=== PATIENT | female | born 1965 | race Caucasian/White ===

== ENCOUNTER 2017-05-27 10:28 | Emergency (ER) | payer MEDICAID ==
[2017-05-27 13:43] VITALS: BP 132/78
== END 2017-05-27 13:43 | disposition home or self-care (01) ==
LOC: ED 10:28
DX: M75.81 Other shoulder lesions, right shoulder (principal)
CPT/HCPCS: J1885; Q0092

== ENCOUNTER 2019-07-30 13:20 | Emergency (ER) | payer BC ==
[2019-07-30 14:47] LABS: BASOPHIL % 0.6 % (0-2); PLATELET COUNT 233 x10^3mcL (130-400)
[2019-07-30 14:54] LABS: CARBON DIOXIDE 30.5 mmol/L (21-32); CHLORIDE SERUM 106 mmol/L (98-107); CREATININE SERUM 0.7 mg/dL (0.6-1.0); GFR1 > 60 mL/min; GLUCOSE SERUM 114 mg/dL (74-106); POTASSIUM SERUM 3.9 mmol/L (3.5-5.1); SODIUM SERUM 142 mmol/L (136-145)
[2019-07-30 14:59] LABS: ALBUMIN 3.4 g/dL (3.4-5.0); ALKALINE PHOSPHATASE 107 U/L (46-116); ALT/SGPT 33 U/L (14-59); AST/SGOT 19 U/L (15-37); BILIRUBIN DIRECT 0.07 mg/dL (0.0-0.2); BILIRUBIN TOTAL 0.3 mg/dL (0.20-1.00); CALCIUM 8.6 mg/dL (8.5-10.1); TOTAL PROTEIN, SERUM 7.1 g/dL (6.4-8.2)
[2019-07-30 16:45] VITALS: BP 125/65
== END 2019-07-30 16:45 | disposition home or self-care (01) ==
LOC: ED 13:20
PROVIDERS: Student in an Organized Health Care Education/Training Program
DX: G43.909 Migraine, unspecified, not intractable, without status migrainosus (principal); R06.02 Shortness of breath
CPT/HCPCS: 83880; J0780; J7030; Q0092

== ENCOUNTER 2020-09-23 14:53 | Emergency (ER) | payer OTHER ==
[~2020-09-23] VITALS: Ht 157.5 cm; Wt 73.9 kg
[2020-09-23 15:11] VITALS: Ht 157.5 cm; Wt 73.9 kg
[2020-09-23 15:44] LABS: CALCIUM 8.8 mg/dL (8.5-10.1); CARBON DIOXIDE 25.1 mmol/L (21-32); CHLORIDE SERUM 104 mmol/L (98-107); CREATININE SERUM 0.8 mg/dL (0.6-1.0); GFR1 > 60 mL/min; GLUCOSE SERUM 126 mg/dL (74-106); POTASSIUM SERUM 3.5 mmol/L (3.5-5.1); SODIUM SERUM 138 mmol/L (136-145)
[2020-09-23 15:46] LABS: BASOPHIL % 0.4 % (0-2); PLATELET COUNT 260 x10^3mcL (130-400); RED CELL DISTRIBUTION WIDTH 14.2 % (11.5-14.5)
[2020-09-23 15:49] LABS: ALBUMIN 3.8 g/dL (3.4-5.0); ALKALINE PHOSPHATASE 128 U/L (46-116); ALT/SGPT 151 U/L (14-59); AST/SGOT 158 U/L (15-37); BILIRUBIN TOTAL 2.18 mg/dL (0.20-1.00); LIPASE 156 IU/L (73-393); TOTAL PROTEIN, SERUM 7.8 g/dL (6.4-8.2)
[2020-09-23 23:42] VITALS: BP 115/62
== END 2020-09-23 23:42 | disposition home or self-care (01) ==
LOC: ED 14:53
DX: K80.50 Calculus of bile duct without cholangitis or cholecystitis without obstruction (principal); R10.11 Right upper quadrant pain; K80.20 Calculus of gallbladder without cholecystitis without obstruction; K76.0 Fatty (change of) liver, not elsewhere classified; R94.5 Abnormal results of liver function studies
CPT/HCPCS: J1885; Q0162

== ENCOUNTER 2020-12-27 08:52 | Emergency (ER) | payer OTHER ==
[~2020-12-27] VITALS: Ht 157.5 cm; Wt 74.4 kg
[2020-12-27 08:56] VITALS: Ht 157.5 cm; Wt 74.4 kg
[2020-12-27 10:00] LABS: BASOPHIL % 0.6 % (0.2-1.3); PLATELET COUNT 266 x10^3mcL (179-408); RED CELL DISTRIBUTION WIDTH 13.6 % (12.3-17.7)
[2020-12-27 10:43] LABS: CALCIUM 9.1 mg/dL (8.5-10.1); CARBON DIOXIDE 28.7 mmol/L (21-32); CHLORIDE SERUM 104 mmol/L (98-107); CREATININE SERUM 0.6 mg/dL (0.6-1.0); GFR1 > 60 mL/min; GLUCOSE SERUM 102 mg/dL (74-106); POTASSIUM SERUM 4.1 mmol/L (3.5-5.1); SODIUM SERUM 140 mmol/L (136-145)
[2020-12-27 10:48] LABS: ALBUMIN 3.7 g/dL (3.4-5.0); ALKALINE PHOSPHATASE 106 U/L (46-116); ALT/SGPT 28 U/L (14-59); AST/SGOT 18 U/L (15-37); BILIRUBIN TOTAL 0.4 mg/dL (0.20-1.00); LIPASE 111 IU/L (73-393); TOTAL PROTEIN, SERUM 7.6 g/dL (6.4-8.2)
[2020-12-27] MEDS ORDERED: CYCLOBENZAPRINE5 MG PO (11:11)
[2020-12-27] MEDS ORDERED: MOT600 PO (11:11)
[2020-12-27 11:22] VITALS: BP 101/75
== END 2020-12-27 11:22 | disposition home or self-care (01) ==
LOC: ED 08:52
PROVIDERS: Student in an Organized Health Care Education/Training Program
DX: S46.011A Strain of muscle(s) and tendon(s) of the rotator cuff of right shoulder, initial encounter (principal); X58.XXXA Exposure to other specified factors, initial encounter; Y93.89 Activity, other specified; Y92.89 Other specified places as the place of occurrence of the external cause; Y99.8 Other external cause status
CPT/HCPCS: J1885